=== PATIENT | male | born 1960 | race African-American/Black ===

== ENCOUNTER 2024-04-09 15:26 | Inpatient (IN) | payer OTHER ==
[2024-04-09 16:47] VITALS: BMI 24.3
[2024-04-09] MEDS ORDERED: BISACODYL 5 MG TABLET.DR (FP) PO PRN (17:01)
[2024-04-09] MEDS ORDERED: POLYETHYLENE GLYCOL (HEALTHYLAX) 3350 17 GM PACKET PO PRN (17:01)
[2024-04-09] MEDS ORDERED: DOCUSATE SODIUM 100 MG CAPSULE (FP) PO PRN (17:01)
[2024-04-09] MEDS ORDERED: BENZONATATE 200 MG CAPSULE PO PRN (17:01)
[2024-04-09] MEDS ORDERED: NALOXONE (NARCAN) HCL 4 MG/0.1 ML SPRAY NS PRN (17:01)
[2024-04-09] MEDS ORDERED: NICOTINE POLACRILEX 2 MG LOZENGE BC PRN (17:01)
[2024-04-09] MEDS ORDERED: MAGNESIUM HYDROX 2400MG/30ML ORAL SUSPENSION 30 ML CUP PO PRN (17:01)
[2024-04-09] MEDS ORDERED: IBUPROFEN 400 MG TABLET (FP) PO PRN (17:01)
[2024-04-09] MEDS ORDERED: guaiFENesin 600 MG TABLET.ER (FP) PO PRN (17:01)
[2024-04-09 20:55] LABS: URINE APPEARANCE CLEAR; URINE BILIRUBIN NEGATIVE (NEGATIVE); URINE COLOR YELLOW; URINE GLUCOSE (UA) NEGATIVE (NEGATIVE); URINE KETONE TRACE (NEGATIVE); URINE LEUK ESTERASE NEGATIVE (NEGATIVE); URINE NITRITE NEGATIVE (NEGATIVE); URINE PROTEIN NEGATIVE (NEGATIVE)
[2024-04-09] MEDS ORDERED: TUBERCULIN PPD 5 TU/0.1ML SYRINGE (IN PATIENT USE ONLY) ID ONE (21:02)
[2024-04-09] MEDS: DORZOLAMIDE HCL/TIMOLOL OPHTHALMIC SOLUTION 10 ML BOTTLE OU SCH (22:23)
[2024-04-09] MEDS: MELATONIN 5 MG TABLETS PO SCH (22:23)
[2024-04-09] MEDS: THIAMINE 100 MG TABLET PO SCH (22:23)
[2024-04-09] MEDS: BUDESONIDE/FORMETEROL FUMARATE 160/4.5 mcg INHALER IH SCH (22:23)
[2024-04-09] MEDS: VITAMINS A AND D TOPICAL OINTMENT TP SCH (23:01)
[2024-04-10] MEDS: PRENATAL VITAMINS W/ FOLIC ACID TABLET (FP) PO SCH (09:32)
[2024-04-10] MEDS: methaDONE HCL 10 MG TABLET PO SCH (09:32)
[2024-04-10] MEDS ORDERED: DICYCLOMINE HCL 10 MG CAPSULE PO PRN (10:10)
[2024-04-10] MEDS ORDERED: BISMUTH SUBSALICYLATE 262 MG/15 ML BTL PO PRN (10:10)
[2024-04-10] MEDS ORDERED: ONDANSETRON *ODT* 4 MG TABLET SL PRN (10:10)
[2024-04-10 12:55] LABS: POTASSIUM 4.3 mmol/L (3.5-5.1)
[2024-04-10 13:04] LABS: HEMATOCRIT 37.7 % (35.4-49); HEMOGLOBIN 12.1 GM/dL (11.7-16.9); MEAN CELL VOLUME 84.4 fl (80-96); MEAN PLT VOLUME 10.1 fl (7.5-11.1); PLATELET COUNT 112 10^3/uL (134-434); RBC 4.47 M/mm3 (4.00-5.60); RDW 14.7 % (11.9-15.9); WHITE BLOOD COUNT 4.5 K/mm3 (4.0-10.0)
[2024-04-10 13:08] LABS: CALCIUM 8.8 mg/dL (8.5-10.1)
[2024-04-10 13:09] LABS: ALBUMIN 2.2 g/dl (3.4-5.0); BLOOD UREA NITROGEN 9.7 mg/dL (7-18)
[2024-04-10 13:11] LABS: CREATININE 0.6 mg/dL (0.55-1.3)
[2024-04-10 13:13] LABS: BILIRUBIN,TOTAL 0.7 mg/dL (0.2-1); TOT PROT 7.1 g/dl (6.4-8.2)
[2024-04-10] MEDS: METHOCARBAMOL 500 MG TABLET PO PRN (15:07)
[2024-04-10] MEDS: LOPERAMIDE HCL 2 MG CAPSULE PO PRN (15:08)
[2024-04-10] MEDS: NICOTINE POLACRILEX 2 MG GUM BUC PRN (22:26)
[2024-04-11] MEDS: hydrOXYzine PAMOATE 25 MG CAPSULE (FP) PO PRN (01:15)
[2024-04-12] MEDS: MAG HYDROX/AL HYDROX/SIMETH 30 ML UNIT-DOSE CUP PO PRN (08:07)
[2024-04-12] MEDS: ACETAMINOPHEN 325 MG TABLET (FP) PO PRN (20:07)
[2024-04-13] MEDS: IBUPROFEN 600 MG TABLET (FP) PO PRN (06:47)
[2024-04-13] MEDS: BENZOCAINE/MENTHOL (CHLORASEPTIC ) LOZENGE MM PRN (10:20)
[2024-04-13] MEDS: CHOLECALCIFEROL (VIT D3) 400 UNIT (10 MCG) TABLET PO SCH (14:56)
[2024-04-13] MEDS: MELATONIN 5 MG TABLETS PO SCH (21:23)
[2024-04-14] MEDS ORDERED: methaDONE HCL 10 MG TABLET PO SCH (06:00)
[2024-04-15] MEDS: ALBUTEROL SO4 HFA INHALER IH PRN (06:58)
[2024-04-17] MEDS: TOLNAFTATE 1% CREAM 15 GM TUBE TP SCH (15:05)
[2024-04-17] MEDS: TOLNAFTATE 1% POWDER 45 GM POW TP SCH (15:05)
[2024-04-18] MEDS: SALICYLIC ACID (WART REMOVER) 9 ML LIQUID TP SCH (09:50)
[2024-04-20] MEDS: FAMOTIDINE 20 MG TABLET PO SCH (15:32)
[2024-04-22 07:00] VITALS: RESP 17
[2024-04-23 07:04] VITALS: BP 152/75; PULSE 67; TEMP 97.9
[2024-04-23] MEDS: NALOXONE (NYS OPIOID OVERDOSE PROGRAM) 4 MG/0.1 ML SPRAY NS SCH (08:46)
== END 2024-04-23 09:25 | disposition home or self-care (01) | DRG 772 ==
LOC: YASAS 15:26 → Y3NR 17:31 → Y3E 04-10 10:05
PROVIDERS: ADMIT Psychiatry & Neurology Pain Medicine; ATTEND Psychiatry & Neurology Pain Medicine
PROC: HZ42ZZZ Group Counseling for Substance Abuse Treatment, Cognitive-Behavioral (ICD-10-PCS; principal; 2024-04-09)
DX: F11.20 Opioid dependence, uncomplicated (principal); F17.210 Nicotine dependence, cigarettes, uncomplicated; Z21 Asymptomatic human immunodeficiency virus [HIV] infection status; I10 Essential (primary) hypertension; J45.909 Unspecified asthma, uncomplicated; H40.9 Unspecified glaucoma; K21.9 Gastro-esophageal reflux disease without esophagitis; B35.3 Tinea pedis; B35.1 Tinea unguium; L84 Corns and callosities
CPT/HCPCS: 36415; 71045-TC-FY; 80053; 81003; 85027; 86593; 86780; 93005; 93010